=== PATIENT | male | born 1970 | race Caucasian/White ===

== ENCOUNTER 2018-07-22 11:30 | Inpatient (IN) | payer SELFPAY ==
[~2018-07-22] VITALS: Ht 182.9 cm; Wt 92.2 kg
--- NOTE | 2018-07-22 00:09 | NUR ---
pt c/o of itching and noted with hives to abdomen, paged Dr Patti Alcaraz and message left with answering service, IV abt stopped and tubing changed, resp even and unlabored, call light in reach
--- NOTE | 2018-07-22 00:40 | NUR ---
repaged Dr Patti Alcaraz and message left with answering service, pt states "itching is not that bad its still about the same", resp even and unlabored, still noted with hives to abdomen but no increase in number or size
[~2018-07-22 11:30] MED LIST: HYDROCHLOROTHIA25 MG PO; LOPID600 MG PO; PRAVACHOL20 MG PO; ZESTRIL2.5 MG PO; [UNRECOGNIZED DRUG - REMARK]
[2018-07-22] MEDS ORDERED: LORAZEPAM INJ 2 MG/ML VIAL IV ONE (12:00)
[2018-07-22] MEDS ORDERED: MULTIVITAMINS- 12 INJECTION 10 ML, FOLIC ACID MDV 5 MG, THIAMINE HCL INJ 100 MG in SODI... IV ONE (12:00)
[2018-07-22 13:27] LABS: BASOPHILS # (AUTO) 0.1 (0.0-0.1); BASOPHILS % 0.4 % (0.0-1.0); EOSINOPHILS # (AUTO) 0.1 (0.0-0.4); EOSINOPHILS % 0.3 % (0.0-6.0); HEMATOCRIT 43.4 % (38.2-49.6); HEMOGLOBIN 14.5 g/dL (14.0-18.0); LYMPHOCYTES # (AUTO) 1.4 (1.0-3.2); LYMPHOCYTES % 9.9 % (18.0-39.1); MEAN CORPUSCULAR HEMOGLOBIN 31.3 pg (28-32); MEAN CORPUSCULAR HGB CONC 33.4 g/dL (31-35); MEAN CORPUSCULAR VOLUME 93.7 fL (81-99); MONOCYTES # (AUTO) 1.2 (0.2-0.8); NEUTROPHILS # (AUTO) 11.6 (2.1-6.9); NEUTROPHILS % 80.9 % (38.7-80.0); PLATELET COUNT 223 x10e3/uL (140-360); RED BLOOD COUNT 4.63 x10e6/uL (4.3-5.7); RED CELL DISTRIBUTION WIDTH 13.7 % (11.7-14.4)
[2018-07-22 13:31] LABS: INR 0.94; PROTHROMBIN TIME 13.1 seconds (11.9-14.5)
[2018-07-22 13:32] LABS: PARTIAL THROMBOPLASTIN TIME 29.9 seconds (23.8-35.5)
[2018-07-22 13:36] LABS: CLARITY,URINE SL CLOUDY (CLEAR); COLOR,URINE YELLOW (YELLOW); KETONES,URINE NEGATIVE (NEGATIVE); LEUKOCYTE ESTERASE ,URINE NEGATIVE (NEGATIVE); NITRITE,URINE NEGATIVE (NEGATIVE); PROTEIN,URINE DIPSTICK 1+ (NEGATIVE); URINE UROBILINOGEN 1 mg/dL (0.2 - 1)
[2018-07-22 13:37] LABS: BILIRUBIN,URINE 1+ (NEGATIVE)
[2018-07-22 13:41] LABS: ALBUMIN 3.6 g/dL (3.5-5.0); ALBUMIN/GLOBULIN RATIO 0.8 (0.8-2.0); ANION GAP 15.9 mmol/L (8-16); CALCIUM 9.7 mg/dL (8.4-10.2); CREATININE, SERUM 1.44 mg/dL (0.72-1.25); MAGNESIUM 1.8 MG/DL (1.3-2.1); POTASSIUM 3.9 mmol/L (3.5-5.1)
[2018-07-22 13:45] LABS: BACTERIA,URINE MODERATE /HPF; EPITHELIAL CELLS,URINE FEW /LPF
[2018-07-22] MEDS ORDERED: ONDANSETRON HCL INJ 2MG/ML 2ML 2 MG/ML VIAL IV PRN (15:30)
[2018-07-22] MEDS ORDERED: PIPER-TAZ 3.375 GM 50 ML IV SCH (15:45)
[2018-07-22 16:43] VITALS: BP 149/83
[2018-07-22 17:00] VITALS: BP 149/83
[2018-07-22] MEDS ORDERED: CLINORIL PO (17:24)
[2018-07-22] MEDS ORDERED: COLCRYS0.6 MG PO (17:24)
--- NOTE | 2018-07-22 17:28 | NUR ---
Magalys Griffith at this time. Patient has fever of 100.3 with complaints of "excruciating" pain to feet. Awaiting return call.
[2018-07-22] MEDS ORDERED: HYDROMORPHONE 1MG/1ML INJ IV PRN (17:45)
[2018-07-22] MEDS: HYDROMORPHONE 2MG/ML 2 MG/ML ML IV PRN ×2 (18:18→21:20)
[2018-07-22] MEDS: LORAZEPAM 1 MG TAB PO SCH (18:18)
[2018-07-22 20:00] VITALS: BP 137/77
[2018-07-22] MEDS: ACETAMINOPHEN 325 MG TAB PO PRN (20:58)
[2018-07-22] MEDS: DEXTROSE 5%/0.9% SOD CHL 1,000 ML IV SCH (20:58)
[2018-07-22] MEDS: PIPER-TAZ 3.375 GM 50 ML IV SCH (20:59)
[2018-07-22] MEDS ORDERED: VANCOMYCIN 1GM/NS 250 ML 250 ML IV SCH (21:00)
[2018-07-23] VITALS (7 sets, daily range): BP systolic 93–135; BP diastolic 58–75
[2018-07-23] MEDS: LORAZEPAM 1 MG TAB PO SCH ×4 (00:04→17:17)
[2018-07-23] MEDS: HYDROMORPHONE 2MG/ML 2 MG/ML ML IV PRN ×3 (02:13→10:30)
[2018-07-23] MEDS: ACETAMINOPHEN 325 MG TAB PO PRN (03:00)
[2018-07-23] MEDS: PIPER-TAZ 3.375 GM 50 ML IV SCH ×4 (05:09→22:51)
[2018-07-23] MEDS: DEXTROSE 5%/0.9% SOD CHL 1,000 ML IV SCH ×2 (05:45→15:26)
[2018-07-23] MEDS ORDERED: DIPHENHYDRAMINE HCL 25 MG CAP PO PRN (06:00)
[2018-07-23 06:15] LABS: BASOPHILS % 0.3 % (0.0-1.0); EOSINOPHILS # (AUTO) 0.1 (0.0-0.4); EOSINOPHILS % 0.5 % (0.0-6.0); HEMATOCRIT 35.9 % (38.2-49.6); HEMOGLOBIN 12.1 g/dL (14.0-18.0); LYMPHOCYTES # (AUTO) 1.8 (1.0-3.2); LYMPHOCYTES % 15.4 % (18.0-39.1); MEAN CORPUSCULAR HEMOGLOBIN 31.3 pg (28-32); MEAN CORPUSCULAR HGB CONC 33.7 g/dL (31-35); MONOCYTES # (AUTO) 0.8 (0.2-0.8); NEUTROPHILS # (AUTO) 9.1 (2.1-6.9); NEUTROPHILS % 76.4 % (38.7-80.0); PLATELET COUNT 168 x10e3/uL (140-360); RED BLOOD COUNT 3.86 x10e6/uL (4.3-5.7); RED CELL DISTRIBUTION WIDTH 13.7 % (11.7-14.4)
[2018-07-23 06:42] LABS: ANION GAP 11.3 mmol/L (8-16); CALCIUM 8.9 mg/dL (8.4-10.2); CARBON DIOXIDE 27 mmol/L (22-29); CHLORIDE 96 mmol/L (98-107); CREATININE, SERUM 1.05 mg/dL (0.72-1.25); EST GLOMERULAR FILTRATION RATE > 60 ML/MIN (60-); GLUCOSE 111 mg/dL (74-118); POTASSIUM 3.3 mmol/L (3.5-5.1); SODIUM 131 mmol/L (136-145)
[2018-07-23 06:56] LABS: BLOOD UREA NITROGEN 8 mg/dL (7-26); BUN/CREATININE RATIO 7 (6-25)
[2018-07-23] MEDS ORDERED: THIAMINE HCL INJ 100 MG in SODIUM CHLORIDE 0.9% 50ML 50 ML IV SCH (09:00)
[2018-07-23] MEDS ORDERED: THIAMINE HCL INJ 100 MG/ML 2ML VIAL IV SCH (09:00)
[2018-07-23] MEDS: METOPROLOL TARTRATE 25 MG TAB PO SCH ×2 (09:59→17:00)
--- NOTE | 2018-07-23 10:30 | NUR ---
Patient medicated for pain to hands and feet per eMAR.
[2018-07-23] MEDS ORDERED: POTASSIUM CHLORIDE 10MEQ EA PO ONE (12:00)
[2018-07-23] MEDS: KETOROLAC TROMETHAMINE 30 MG/ML VIAL IV SCH ×2 (12:23→17:17)
[2018-07-23] MEDS: LINEZOLID 600 MG/D5W 300ML 300 ML IV SCH (12:24)
--- NOTE | 2018-07-23 14:57 | NUR ---
Nutrition Screen Note RD Recommendation for Physician: -Continue regular diet as ordered -Continue banana bag as medically appropriate Plan of Care: RD following, monitoring for tolerance and adequacy Nutrition reason for involvement: Nutrition Risk Trigger MST Primary Diagnose(s): alcohol withdrawal, cellulitis of both feet PMH: no H & P in chart, family reported gout Ht: 72in Wt: 198.02lb BMI: 26.9kg/m2 IBW: 178lb RD Assessment: (07/23) Chart reviewed. Labs and meds reviewed. 48yo M, who was admitted for alcohol withdrawal. Pt reported poor meal intake due to alcohol abuse [employer]. Unknown weight loss hx. Pt denied any nausea or vomiting. LBM 07/23. No chewing or swallowing issue. RD discussed menu options; family requested no acidic foods on meal trays (preferences entered on HT). Will continue to monitor and follow. Current Diet: regular diet Malnutrition Evaluation (07/23) The patient does not meet criteria for a specified degree of malnutrition at this time. Will re-evaluate at follow-up as appropriate. Energy intake: <50% of estimated energy requirements for >5 days Diet Education Needs Assessment: Diet education not indicated. Nutrition Care Level: low Signed: Rosalia Elder, MS, RD, LD
[2018-07-23] MEDS: MULTIVITAMINS- 12 INJECTION 10 ML, FOLIC ACID MDV 5 MG, THIAMINE HCL INJ 100 MG in SODI... IV SCH (15:00)
[2018-07-23] MEDS ORDERED: ONDANSETRON HCL 4 MG ORAL DISINTEGRATING TAB PO PRN (15:45)
--- NOTE | 2018-07-23 16:06 | NUR ---
GAVE PACKET OF INFORMATION WITH COMMUNITY [employer]OURCES FOR ASSISTANCE WITH LOW TO NO INCOME TO PATIENT. RESOURCES THAT PATIENT MAY BE ABLE TO FOLLOW UP UPON DISCHARGE. PT EDUCATED ON EACH RESOURCE AND UNDERSTANDING HOW TO FOLLOW UP TO SEE IF QUALIFIED FOR EACH RESOURCE.
--- NOTE | 2018-07-23 20:25 | NUR ---
RECEIVE DPT IN BED AOX3 DENIES PAIN .RESPIRATIONS ARE EVEN AND UN LABORED .CALL LIGHT WITH IN REACH .CONTINUE TO MONITOR
[2018-07-24] VITALS (8 sets, daily range): BP systolic 111–158; BP diastolic 69–91
[2018-07-24] MEDS: PIPER-TAZ 3.375 GM 50 ML IV SCH ×4 (04:00→22:13)
[2018-07-24] MEDS: DEXTROSE 5%/0.9% SOD CHL 1,000 ML IV SCH ×3 (05:07→21:45)
[2018-07-24 05:35] LABS: BASOPHILS % 0.4 % (0.0-1.0); EOSINOPHILS # (AUTO) 0.1 (0.0-0.4); EOSINOPHILS % 1.3 % (0.0-6.0); HEMATOCRIT 34.1 % (38.2-49.6); HEMOGLOBIN 11.5 g/dL (14.0-18.0); LYMPHOCYTES # (AUTO) 1.4 (1.0-3.2); LYMPHOCYTES % 14.7 % (18.0-39.1); MEAN CORPUSCULAR HEMOGLOBIN 31.9 pg (28-32); MEAN CORPUSCULAR HGB CONC 33.7 g/dL (31-35); MEAN CORPUSCULAR VOLUME 94.5 fL (81-99); MONOCYTES # (AUTO) 0.6 (0.2-0.8); MONOCYTES % 6.8 % (4.4-11.3); NEUTROPHILS # (AUTO) 7.2 (2.1-6.9); NEUTROPHILS % 76.3 % (38.7-80.0); PLATELET COUNT 142 x10e3/uL (140-360); RED BLOOD COUNT 3.61 x10e6/uL (4.3-5.7); RED CELL DISTRIBUTION WIDTH 13.2 % (11.7-14.4)
[2018-07-24] MEDS: KETOROLAC TROMETHAMINE 30 MG/ML VIAL IV SCH ×4 (05:35→17:47)
[2018-07-24] MEDS: LORAZEPAM 1 MG TAB PO SCH ×4 (05:35→17:47)
[2018-07-24 05:54] LABS: ANION GAP 12.7 mmol/L (8-16); BLOOD UREA NITROGEN 10 mg/dL (7-26); BUN/CREATININE RATIO 11 (6-25); CARBON DIOXIDE 24 mmol/L (22-29); CHLORIDE 103 mmol/L (98-107); CREATININE, SERUM 0.95 mg/dL (0.72-1.25); EST GLOMERULAR FILTRATION RATE > 60 ML/MIN (60-); GLUCOSE 105 mg/dL (74-118); POTASSIUM 3.7 mmol/L (3.5-5.1); SODIUM 136 mmol/L (136-145)
--- NOTE | 2018-07-24 06:28 | NUR ---
PT C/O PAIN OF BILATERAL LEGS .GIVEN ORDERED PAIN MEDICATION .FAMILY AT THE BEDSIDE
--- NOTE | 2018-07-24 07:34 | NUR ---
REPORT GIVEN TO ON COMING NURSE
[2018-07-24] MEDS: METOPROLOL TARTRATE 25 MG TAB PO SCH ×2 (09:51→17:47)
[2018-07-24] MEDS: MULTIVITAMINS- 12 INJECTION 10 ML, FOLIC ACID MDV 5 MG, THIAMINE HCL INJ 100 MG in SODI... IV SCH (11:47)
[2018-07-24] MEDS: LINEZOLID 600 MG/D5W 300ML 300 ML IV SCH ×2 (12:23)
[2018-07-24] MEDS: HYDROCODONE/APAP 7.5MG-325MG 1 EA TAB PO PRN (20:48)
[2018-07-25] VITALS (8 sets, daily range): BP systolic 120–165; BP diastolic 78–92
[2018-07-25] MEDS: LINEZOLID 600 MG/D5W 300ML 300 ML IV SCH ×2 (00:02→12:28)
[2018-07-25] MEDS: LORAZEPAM 1 MG TAB PO SCH ×4 (00:02→17:38)
[2018-07-25] MEDS: PIPER-TAZ 3.375 GM 50 ML IV SCH ×4 (04:38→21:37)
[2018-07-25] MEDS: MULTIVITAMINS- 12 INJECTION 10 ML, FOLIC ACID MDV 5 MG, THIAMINE HCL INJ 100 MG in SODI... IV SCH (09:00)
[2018-07-25] MEDS: METOPROLOL TARTRATE 25 MG TAB PO SCH ×2 (09:36→17:38)
[2018-07-25] MEDS: METHYLPREDNISOLONE SOD SUCC 40 MG/ML VIAL 1ML IV SCH ×2 (17:37→21:37)
[2018-07-26] VITALS: BP 165/98
[2018-07-26] MEDS: LORAZEPAM 1 MG TAB PO SCH ×3 (00:17→13:15)
[2018-07-26] MEDS: LINEZOLID 600 MG/D5W 300ML 300 ML IV SCH ×2 (00:17→11:05)
[2018-07-26] MEDS: HYDROCODONE/APAP 7.5MG-325MG 1 EA TAB PO PRN (00:17)
[2018-07-26] MEDS: PIPER-TAZ 3.375 GM 50 ML IV SCH ×2 (04:15→09:38)
[2018-07-26 05:10] LABS: BASOPHILS % 0.2 % (0.0-1.0); HEMATOCRIT 36.1 % (38.2-49.6); HEMOGLOBIN 12.2 g/dL (14.0-18.0); LYMPHOCYTES % 12.2 % (18.0-39.1); MEAN CORPUSCULAR HEMOGLOBIN 31.8 pg (28-32); MEAN CORPUSCULAR HGB CONC 33.8 g/dL (31-35); MONOCYTES # (AUTO) 0.3 (0.2-0.8); MONOCYTES % 3.7 % (4.4-11.3); NEUTROPHILS # (AUTO) 6.7 (2.1-6.9); NEUTROPHILS % 83.2 % (38.7-80.0); PLATELET COUNT 235 x10e3/uL (140-360); RED BLOOD COUNT 3.84 x10e6/uL (4.3-5.7)
[2018-07-26 05:39] VITALS: BP 134/81
[2018-07-26 05:57] LABS: ALANINE AMINOTRANSFERASE 65 IU/L (0-55); ALBUMIN/GLOBULIN RATIO 0.7 (0.8-2.0); ALKALINE PHOSPHATASE 111 IU/L (40-150); ANION GAP 14.1 mmol/L (8-16); BLOOD UREA NITROGEN 9 mg/dL (7-26); BUN/CREATININE RATIO 9 (6-25); CALCIUM 9.4 mg/dL (8.4-10.2); CARBON DIOXIDE 23 mmol/L (22-29); CHLORIDE 103 mmol/L (98-107); CREATININE, SERUM 1.02 mg/dL (0.72-1.25); EST GLOMERULAR FILTRATION RATE > 60 ML/MIN (60-); GLUCOSE 140 mg/dL (74-118); POTASSIUM 4.1 mmol/L (3.5-5.1); SODIUM 136 mmol/L (136-145)
[2018-07-26 08:30] VITALS: BP 130/76
[2018-07-26] MEDS: METHYLPREDNISOLONE SOD SUCC 40 MG/ML VIAL 1ML IV SCH (08:55)
[2018-07-26] MEDS: METOPROLOL TARTRATE 25 MG TAB PO SCH (08:55)
[2018-07-26 09:16] VITALS: BP 130/76
[2018-07-26 12:40] VITALS: BP 134/78
[2018-07-26] MEDS ORDERED: METOPROLOL TART25 MG PO (14:23)
[2018-07-26] MEDS ORDERED: KEFLEX500 MG PO (14:24)
[2018-07-26] MEDS ORDERED: THIAMINE H100 MG/1 M PO (14:25)
[2018-07-26] MEDS ORDERED: FOLIC ACID1 MG PO (14:25)
[2018-07-26] MEDS ORDERED: PREDNISONE20 MG PO (14:26)
--- NOTE | 2018-07-26 14:55 | Discharge Summary ---
ADMITTING DIAGNOSES: 1. Left foot cellulitis. 2. Acute gouty attack (left podagra). 3. Acute renal failure. 4. Alcoholic hepatitis. 5. Hypertensive heart disease. 6. Chronic alcoholism. DISCHARGE DIAGNOSES: 1. Left foot cellulitis, resolving. 2. Acute alcohol withdrawal, resolved. 3. Chronic alcoholism. 4. Acute gouty attack, resolving (left podagra). 5. Acute renal failure, resolved. HOSPITAL COURSE: This is a 48-year-old white man, who was initially admitted to [facility] Emergency room with diagnosis of left foot cellulitis and left podagra (acute gout attack). The patient has a history of chronic alcoholism as well as a history of recurrent bouts of gout. The patient was also diagnosed with acute alcoholic hepatitis as well as acute renal failure on admission. On admission, the patient's BUN and creatinine was 9 and 1.44 respectively. On the day of discharge, the patient's BUN and creatinine 9 and 1.02 respectively. The patient received intravenous multivitamin, folic acid, and thiamine during this hospitalization. He also received intravenous linezolid and piperacillin-tazobactam for his cellulitis and urinary tract infection respectively. Urine culture during this hospitalization, however, did not reveal any bacterial species in his urine. The patient was found to have an elevated uric acid level of 7.3 during this hospitalization. The patient improved clinically in regard to his gout with intravenous methylprednisolone. The patient's hospitalization was unremarkable. His condition on discharge was stable. DISCHARGE MEDICATIONS: 1. Prednisone 40 mg daily for five days. 2. Thiamine 100 mg b.i.d. for 30 days. 3. Folic acid 1 mg b.i.d. for 30 days. 4. Keflex 500 mg b.i.d. for 5 days. 5. Metoprolol tartrate 25 mg b.i.d. The patient was told not to restart gemfibrozil, pravastatin, colchicine, hydrochlorothiazide, and lisinopril until further notice. FOLLOWUP: The patient was instructed to follow up with his primary care physician or with Dr. Kareem Alcaraz within 2 weeks. Absolute alcohol abstinence was recommended to the patient. MD RADHA Sun/[place] /[id number] cc: Kareem Alcaraz MD MTDD
--- NOTE | 2018-07-26 14:55 | NUR ---
PIV removed with tip intact. pt refused assistance and walked to front lobby entrance where awaited in private auto. all personal belongings, RX and d/c instructions with patient at time of d/c.
== END 2018-07-26 14:55 | disposition home or self-care (01) | DRG 603 ==
LOC: ER 11:30 → ERHOLD 15:30 → MED/SURG2 16:37
DX: L03.116 Cellulitis of left lower limb (principal); N17.9 Acute kidney failure, unspecified; F10.239 Alcohol dependence with withdrawal, unspecified; M10.9 Gout, unspecified; K70.10 Alcoholic hepatitis without ascites; I11.9 Hypertensive heart disease without heart failure; E78.5 Hyperlipidemia, unspecified
CPT/HCPCS: 36415; 80048; 80053; 80202; 80320; 81001; 82150; 83690; 83735; 84550; 85025; 85610; 85651; 85730; 87086; 93005; 96374; 99284; J1885; J2020; J2060; J2543; J2920; J3370; J3411; J7030; J7042

== ENCOUNTER 2019-10-22 21:03 | Emergency (ER) | payer SELFPAY ==
[~2019-10-22] VITALS: Ht 182.9 cm; Wt 92.1 kg
[~2019-10-22 21:03] MED LIST changes: +CLINORIL PO; +COLCRYS0.6 MG PO; +FOLIC ACID1 MG PO; +KEFLEX500 MG PO; +METOPROLOL TART25 MG PO; +PREDNISONE20 MG PO; +THIAMINE H100 MG/1 M PO
[2019-10-22 22:52] LABS: BASOPHILS # (AUTO) 0.1 (0.0-0.1); BASOPHILS % 0.6 % (0.0-1.0); EOSINOPHILS # (AUTO) 0.2 (0.0-0.4); EOSINOPHILS % 1.2 % (0.0-6.0); HEMOGLOBIN 14.4 g/dL (14.0-18.0); LYMPHOCYTES # (AUTO) 1.4 (1.0-3.2); LYMPHOCYTES % 10.9 % (18.0-39.1); MEAN CORPUSCULAR HEMOGLOBIN 30.6 pg (28-32); MEAN CORPUSCULAR VOLUME 95.5 fL (81-99); MONOCYTES # (AUTO) 1.5 (0.2-0.8); MONOCYTES % 11.9 % (4.4-11.3); NEUTROPHILS # (AUTO) 9.4 (2.1-6.9); NEUTROPHILS % 74.8 % (38.7-80.0); PLATELET COUNT 230 x10e3/uL (140-360); RED BLOOD COUNT 4.71 x10e6/uL (4.3-5.7); RED CELL DISTRIBUTION WIDTH 13.7 % (11.7-14.4)
[2019-10-22 23:08] LABS: ALANINE AMINOTRANSFERASE 55 IU/L (0-55); ALBUMIN 3.8 g/dL (3.5-5.0); ALBUMIN/GLOBULIN RATIO 0.9 (0.8-2.0); ALKALINE PHOSPHATASE 83 IU/L (40-150); ANION GAP 16.2 mmol/L (8-16); BLOOD UREA NITROGEN 13 mg/dL (7-26); BUN/CREATININE RATIO 11 (6-25); CALCIUM 9.6 mg/dL (8.4-10.2); CARBON DIOXIDE 26 mmol/L (22-29); CHLORIDE 99 mmol/L (98-107); CREATINE KINASE 46 IU/L (30-200); CREATININE, SERUM 1.19 mg/dL (0.72-1.25); EST GLOMERULAR FILTRATION RATE > 60 ML/MIN (60-); GLUCOSE 137 mg/dL (74-118); POTASSIUM 4.2 mmol/L (3.5-5.1); SODIUM 137 mmol/L (136-145)
--- NOTE | 2019-10-23 00:04 | Emergency Department Note ---
History of Present Illnes History of Present Illness Chief Complaint: General Medicine Complaints History of Present Illness This is a 49 year old male arrives to the ED via bilateral knee and feet pain, patient states his gout is acting up and he feels like he has an infection. Chief Complaint Comment c/o gout to bilateral knees, bilateral feet, bilateral elbow and back pain progressively getting worse over a month to the point he cannot walk or get out of bed states he was dx with cellulitis and gout the last time he was here seen by dr juarez Historian: Patient Arrival Mode: Car Onset (how long ago): day(s) Severity: mild Onset quality: gradual Duration (how long): day(s) Timing of current episode: intermittent Chronicity: recurrent Past Medical/Family History Physician Review I have reviewed the patient's past medical and family history. Any updates have been documented here. Past Medical History Recent Fever: Yes Clinical Suspicion of Infectio: No New/Unexplained Change in Ment: No Past Medical History: Hypertension Other Medical History: Gout Past Surgical History: Appendectomy, Knee Replacement Other Surgery: LEFT NEPHRECTOMY LEFT KNEE SURGER Other Last Tetanus: UNK Review of Systems Review of Systems Constitutional: Reports no symptoms EENTM: Reports no symptoms Cardiovascular: Reports no symptoms Respiratory: Reports no symptoms Gastrointestinal: Reports no symptoms Genitourinary: Reports no symptoms Musculoskeletal: Reports gout, Reports joint pain, Reports joint swelling Integumentary: Reports no symptoms Neurological: Reports no symptoms Psychological: Reports no symptoms Endocrine: Reports no symptoms Hematological/Lymphatic: Reports no symptoms Physical Exam Related Data Allergies: Coded Allergies: vancomycin (Verified Allergy, Intermediate, hives, itching, 07/23/18) Triage Vital Signs Vital Signs Date Time Temp Pulse Resp B/P (MAP) Pulse Ox O2 Delivery O2 Flow Rate FiO2 10/22/19 21:44 101.4 90 18 161/90 100 Room Air Physical Exam CONSTITUTIONAL Constitutional: Present well-developed, Present well-nourished HENT HENT: Present normocephalic, Present atraumatic, Present oropharynx clear/moist, Present nose normal HENT L/R: Present left ext ear normal, Present right ext ear normal EYES Eyes: Reports PERRL, Reports conjunctivae normal NECK Neck: Present ROM normal PULMONARY Pulmonary: Present effort normal, Present breath sounds normal CARDIOVASCULAR Cardiovascular: Present regular rhythm, Present heart sounds normal, Present capillary refill normal, Present normal rate GASTROINTESTINAL Abdominal: Present soft, Present nontender, Present bowel sounds normal GENITOURINARY Genitourinary: Present exam deferred SKIN Skin: Present warm, Present dry; Absent erythema MUSCULOSKELETAL Musculoskeletal: Present ROM normal NEUROLOGICAL Neurological: Present alert, Present oriented x 3, Present no gross motor or sensory deficits PSYCHOLOGICAL Psychological: Present mood/affect normal, Present judgement normal Results Laboratory Result Diagram: 10/22/19215310/22/192153 Laboratory Laboratory Tests Test 10/22/19 21:54 White Blood Count 12.61 x10e3/uL (4.8-10.8) Red Blood Count 4.71 x10e6/uL (4.3-5.7) Hemoglobin 14.4 g/dL (14.0-18.0) Hematocrit 45.0 % (38.2-49.6) Mean Corpuscular Volume 95.5 fL (81-99) Mean Corpuscular Hemoglobin 30.6 pg (28-32) Mean Corpuscular Hemoglobin Concent 32.0 g/dL (31-35) Red Cell Distribution Width 13.7 % (11.7-14.4) Platelet Count 230 x10e3/uL (140-360) Neutrophils (%) (Auto) 74.8 % (38.7-80.0) Lymphocytes (%) (Auto) 10.9 % (18.0-39.1) Monocytes (%) (Auto) 11.9 % (4.4-11.3) Eosinophils (%) (Auto) 1.2 % (0.0-6.0) Basophils (%) (Auto) 0.6 % (0.0-1.0) Neutrophils # (Auto) 9.4 (2.1-6.9) Lymphocytes # (Auto) 1.4 (1.0-3.2) Monocytes # (Auto) 1.5 (0.2-0.8) Eosinophils # (Auto) 0.2 (0.0-0.4) Basophils # (Auto) 0.1 (0.0-0.1) Absolute Immature Granulocyte (auto 0.07 x10e3/uL (0-0.1) Sodium Level 137 mmol/L (136-145) Potassium Level 4.2 mmol/L (3.5-5.1) Chloride Level 99 mmol/L (98-107) Carbon Dioxide Level 26 mmol/L (22-29) Anion Gap 16.2 mmol/L (8-16) Blood Urea Nitrogen 13 mg/dL (7-26) Creatinine 1.19 mg/dL (0.72-1.25) Estimat Glomerular Filtration Rate > 60 ML/MIN (60-) BUN/Creatinine Ratio 11 (6-25) Glucose Level 137 mg/dL (74-118) Calcium Level 9.6 mg/dL (8.4-10.2) Total Bilirubin 1.1 mg/dL (0.2-1.2) Aspartate Amino Transf (AST/SGOT) 31 IU/L (5-34) Alanine Aminotransferase (ALT/SGPT) 55 IU/L (0-55) Alkaline Phosphatase 83 IU/L (40-150) Creatine Kinase 46 IU/L (30-200) Creatine Kinase MB 0.70 ng/mL (0-5.0) Troponin I < 0.001 ng/mL (0-0.300) Total Protein 8.0 g/dL (6.5-8.1) Albumin 3.8 g/dL (3.5-5.0) Globulin 4.2 g/dL (2.3-3.5) Albumin/Globulin Ratio 0.9 (0.8-2.0) Lab results reviewed: Yes Imaging Imaging results reviewed: Yes Impressions IMPRESSION: No acute thoracic radiographic abnormality. Assessment & Plan Medical Decision Making MDM 40 myomectomy arrived to the ED of bilateral joint pain and swelling, no deformity febrile in the ED. Joints do not look cellulitic or infected at this time. Patient's labwork unremarkable. No indication for hospital admission at this time. Assessment & Plan Final Impression: (1) Cellulitis of both feet (2) Alcohol withdrawal Depart Disposition: HOME, SELF-CARE Last Vital Signs Date Time Temp Pulse Resp B/P (MAP) Pulse Ox O2 Delivery O2 Flow Rate FiO2 10/22/19 21:44 101.4 90 18 161/90 100 Room Air Home Meds Reported Medications Prednisone (PREDNISONE) 20 Mg Tab, 40 MG PO DAILY for 5 Days, #5 TAB 07/26/18 Thiamine Hcl (THIAMINE HCL) 100 Mg/1 Ml Vial, 100 MG PO DAILY, #30 VIAL 07/26/18 Folic Acid (FOLIC ACID) 1 Mg Tablet, 1 MG PO BID, #60 TAB 07/26/18 Cephalexin Monohydrate (KEFLEX) 500 Mg Capsule, 1 CAP PO BID for 5 Days, #10 07/26/18 Metoprolol Tartrate (METOPROLOL TARTRATE) 25 Mg Tablet, 25 MG PO BID, #60 TAB 07/26/18 TIBURCIO JUAREZ, Oct 23, 2019 00:03
--- NOTE | 2019-10-23 01:07 | Diagnostic Imaging Report ---
EXAMINATION: CHEST SINGLE (PORTABLE) INDICATION: ^Y ^fever ^[id number] ^[id number] COMPARISON: None FINDINGS: AP view TUBES and LINES: None. LUNGS: Lungs are well inflated. Lungs are clear. There is no evidence of pneumonia or pulmonary edema. PLEURA: No pleural effusion or pneumothorax. HEART AND MEDIASTINUM: The cardiomediastinal silhouette is unremarkable. BONES AND SOFT TISSUES: No acute osseous lesion. Soft tissues are unremarkable. UPPER ABDOMEN: No free air under the diaphragm. IMPRESSION: No acute thoracic radiographic abnormality. Signed by: Laurent Ruvalcaba MD on 10/23/2019 1:03 AM
[2019-10-23 04:00] LABS: AMPHETAMINES SCREEN,URINE NEGATIVE (NEGATIVE); BENZODIAZEPINES SCREEN,URINE NEGATIVE (NEGATIVE); PHENCYCLIDINE SCREEN,URINE NEGATIVE (NEGATIVE)
[2019-10-23 04:01] LABS: CLARITY,URINE CLEAR (CLEAR); COLOR,URINE ORANGE (YELLOW); LEUKOCYTE ESTERASE ,URINE NEGATIVE (NEGATIVE); NITRITE,URINE NEGATIVE (NEGATIVE)
[2019-10-23 04:02] LABS: BILIRUBIN,URINE SMALL (NEGATIVE); KETONES,URINE NEGATIVE (NEGATIVE); PROTEIN,URINE DIPSTICK NEGATIVE (NEGATIVE); URINE UROBILINOGEN 2 mg/dL (0.2 - 1)
[2019-10-23 04:15] LABS: EPITHELIAL CELLS,URINE FEW /LPF; MUCUS,URINE MANY (RARE); RBC,URINE 0-5 /HPF (0-5); WBC,URINE (MAN) 0-5 /HPF (0-5)
== END 2019-10-23 04:31 | disposition home or self-care (01) ==
LOC: ER 22:10
DX: L03.116 Cellulitis of left lower limb (principal); L03.115 Cellulitis of right lower limb; F10.239 Alcohol dependence with withdrawal, unspecified
CPT/HCPCS: 36415; 71045; 80053; 80307; 81001; 82550; 82553; 83605; 84484; 85025; 87040; 99284

== ENCOUNTER 2020-05-20 21:35 | Emergency (ER) | payer BC ==
[~2020-05-20] VITALS: Ht 182.9 cm; Wt 92.1 kg
[2020-05-20] MEDS ORDERED: ASPIRIN 81 MG CHEW TAB PO ONE (21:45)
[2020-05-20] MEDS ORDERED: KETOROLAC TROMETHAMINE 30 MG/ML VIAL IV STA (21:50)
[2020-05-20] MEDS ORDERED: METHYLPREDNISOLONE SOD SUCC 125 MG/2ML VIAL IV ONE (22:00)
[2020-05-20 22:42] LABS: BASOPHILS # (AUTO) 0.1 (0.0-0.1); BASOPHILS % 0.7 % (0.0-1.0); EOSINOPHILS # (AUTO) 0.3 (0.0-0.4); EOSINOPHILS % 2.2 % (0.0-6.0); HEMATOCRIT 42.3 % (38.2-49.6); HEMOGLOBIN 14.2 g/dL (14.0-18.0); LYMPHOCYTES # (AUTO) 2.8 (1.0-3.2); LYMPHOCYTES % 23.3 % (18.0-39.1); MEAN CORPUSCULAR HEMOGLOBIN 32.2 pg (28-32); MEAN CORPUSCULAR HGB CONC 33.6 g/dL (31-35); MEAN CORPUSCULAR VOLUME 95.9 fL (81-99); MONOCYTES # (AUTO) 1.1 (0.2-0.8); MONOCYTES % 8.6 % (4.4-11.3); NEUTROPHILS # (AUTO) 7.8 (2.1-6.9); NEUTROPHILS % 64.2 % (38.7-80.0); PLATELET COUNT 357 x10e3/uL (140-360); RED BLOOD COUNT 4.41 x10e6/uL (4.3-5.7); RED CELL DISTRIBUTION WIDTH 13.5 % (11.7-14.4)
[2020-05-20 22:46] LABS: PROTHROMBIN TIME 13.8 seconds (11.9-14.5)
[2020-05-20 22:47] LABS: PARTIAL THROMBOPLASTIN TIME 29.7 seconds (23.8-35.5)
[2020-05-20 22:57] LABS: ALANINE AMINOTRANSFERASE 42 IU/L (0-55); ALBUMIN 3.2 g/dL (3.5-5.0); ALBUMIN/GLOBULIN RATIO 0.7 (0.8-2.0); ALKALINE PHOSPHATASE 108 IU/L (40-150); ANION GAP 20.2 mmol/L (8-16); BLOOD UREA NITROGEN < 5 mg/dL (7-26); CALCIUM 8.5 mg/dL (8.4-10.2); CARBON DIOXIDE 20 mmol/L (22-29); CHLORIDE 93 mmol/L (98-107); CREATINE KINASE 106 IU/L (30-200); CREATININE, SERUM 0.83 mg/dL (0.72-1.25); EST GLOMERULAR FILTRATION RATE > 60 ML/MIN (60-); GLUCOSE 144 mg/dL (74-118); POTASSIUM 3.2 mmol/L (3.5-5.1); SODIUM 130 mmol/L (136-145)
[2020-05-20 22:58] LABS: BUN/CREATININE RATIO 6 (6-25)
[2020-05-20] MEDS ORDERED: IOPAMIDOL 370 MG/ML 200 ML INFUS..BTL INJ ONE (23:26)
[2020-05-21 00:40] VITALS: BP 131/85
== END 2020-05-21 00:49 | disposition home or self-care (01) ==
LOC: ER 21:40
DX: M94.0 Chondrocostal junction syndrome [Tietze] (principal); R21 Rash and other nonspecific skin eruption; Z88.1 Allergy status to other antibiotic agents; Z90.5 Acquired absence of kidney
CPT/HCPCS: 36415; 71045; 71260; 80053; 82550; 82553; 83880; 84484; 85025; 85379; 85610; 85730; 93005; 99284; J1885; J2930; Q9967

== ENCOUNTER 2022-02-15 13:52 | Emergency (ER) | payer SELFPAY ==
[~2022-02-15] VITALS: Ht 365.8 cm; Wt 93.4 kg
[~2022-02-15 13:52] MED LIST changes: +AUGMENTIN 500-1 EACH PO; +FUROSEMIDE40 MG PO; +INDERAL10 MG PO
== END 2022-02-15 14:20 | disposition home or self-care (01) ==
LOC: ER 13:58
DX: K70.31 Alcoholic cirrhosis of liver with ascites (principal); I10 Essential (primary) hypertension; M10.9 Gout, unspecified; F10.10 Alcohol abuse, uncomplicated
CPT/HCPCS: 99282

== ENCOUNTER 2024-07-28 14:10 | Inpatient (IN) | payer MEDICAID, MEDICARE ==
[~2024-07-28] VITALS: Ht 365.8 cm; Wt 90.7 kg
[2024-07-28 14:34] VITALS: TEMP 97.8
[2024-07-28 14:53] LABS: BASOPHILS # (AUTO) 0.1 (0.0-0.1); BASOPHILS % 0.9 % (0.0-1.0); EOSINOPHILS # (AUTO) 0.4 (0.0-0.4); EOSINOPHILS % 5.4 % (0.0-6.0); HEMATOCRIT 34.9 % (38.2-49.6); HEMOGLOBIN 12.3 g/dL (14.0-18.0); LYMPHOCYTES % 15.5 % (18.0-39.1); MEAN CORPUSCULAR HEMOGLOBIN 32.3 pg (28-32); MEAN CORPUSCULAR HGB CONC 35.2 g/dL (31-35); MEAN CORPUSCULAR VOLUME 91.6 fL (81-99); MONOCYTES # (AUTO) 0.4 (0.2-0.8); MONOCYTES % 6.2 % (4.4-11.3); NEUTROPHILS # (AUTO) 4.6 (2.1-6.9); NEUTROPHILS % 71.5 % (38.7-80.0); PLATELET COUNT 139 x10e3/uL (140-360); RED BLOOD COUNT 3.81 x10e6/uL (4.3-5.7); RED CELL DISTRIBUTION WIDTH 14.2 % (11.7-14.4); WHITE BLOOD COUNT 6.45 x10e3/uL (4.8-10.8)
[2024-07-28 15:16] LABS: ALBUMIN/GLOBULIN RATIO 1.4 (0.8-2.0); BILIRUBIN,TOTAL 0.7 mg/dL (0.2-1.2); CALCIUM 8.8 mg/dL (8.4-10.2); CREATININE, SERUM 1.96 mg/dL (0.72-1.25); TOTAL PROTEIN 6.8 g/dL (6.5-8.1)
[2024-07-28] MEDS: SODIUM CHLORIDE 0.9% 1000ML 1,000 ML IV STA ×2 (15:42→16:39)
[2024-07-28] MEDS: INSULIN REGULAR, HUMAN 100 UNIT/1 ML IV ONE (15:43)
[2024-07-28 15:44] LABS: BILIRUBIN,URINE NEGATIVE (NEGATIVE); CLARITY,URINE CLEAR (CLEAR); COLOR,URINE YELLOW (YELLOW); GLUCOSE, URINE 500 (NEGATIVE); KETONES,URINE NEGATIVE (NEGATIVE); LEUKOCYTE ESTERASE ,URINE NEGATIVE (NEGATIVE); NITRITE,URINE NEGATIVE (NEGATIVE); PH,URINE 6.5 (5 - 7); PROTEIN,URINE DIPSTICK NEGATIVE (NEGATIVE); URINE UROBILINOGEN 0.2 mg/dL (0.2 - 1)
[2024-07-28 15:45] LABS: ANION GAP 13.5 mmol/L (8-16); INR 0.94; PARTIAL THROMBOPLASTIN TIME 31.1 seconds (23.8-35.5); POTASSIUM 5.5 mmol/L (3.5-5.1); PROTHROMBIN TIME 13.1 seconds (11.9-14.5)
[2024-07-28 15:48] LABS: BACTERIA,URINE FEW /HPF; EPITHELIAL CELLS,URINE FEW /LPF; RBC,URINE 0-5 /HPF (0-5); WBC,URINE (MAN) 0-5 /HPF (0-5)
[2024-07-28] MEDS: Morphine 4mg INJECTION 4 MG/ML INJ IV STA (16:39)
[2024-07-28] MEDS: ONDANSETRON HCL INJ 2MG/ML 2ML 2 MG/ML VIAL IV STA (16:39)
[2024-07-28 16:52] LABS: ABG PCO2 44 mmHg (35-45); ABG PH 7.34 (7.35-7.45); ABG PO2 87 mmHg (80-105)
[2024-07-28 16:53] LABS: ABG HCO3 24 mmol/L (22-26); ABG TCO2 25
[2024-07-28] MEDS ORDERED: DEXTROSE 50% SYRINGE 50 ML IV PRN (18:00)
[2024-07-28] MEDS ORDERED: ONDANSETRON HCL INJ 2MG/ML 2ML 2 MG/ML VIAL IV PRN (18:00)
[2024-07-28 18:30] VITALS: RESP 18
[2024-07-28] MEDS: SODIUM CHLORIDE 0.9% 1000ML 1,000 ML IV SCH (18:32)
[2024-07-28 19:15] VITALS: PULSE 70
[2024-07-28 20:20] VITALS: BP 124/86; PULSE 66; RESP 18; TEMP 98.4; O2SAT 99
[2024-07-28 21:00] VITALS: BP 124/86; PULSE 66; RESP 18; TEMP 98.4; O2SAT 99
[2024-07-28] MEDS: INSULIN LISPRO 100 UNIT/1 ML 3ML VIAL SQ SCH (21:30)
[2024-07-28 23:28] VITALS: BP 123/74; PULSE 80; RESP 18; TEMP 98.1; O2SAT 98
[2024-07-29] VITALS (9 sets, daily range): BP systolic 113–138; BP diastolic 66–96; PULSE 63–80; RESP 16–18; TEMP 98.1–98.8; O2SAT 96–100
[2024-07-29 00:56] LABS: TROPONIN I 0.012 ng/mL (0-0.300)
[2024-07-29] MEDS ORDERED: TACROLIMUS1 MG PO (02:04)
[2024-07-29] MEDS ORDERED: MAG-OXIDE400 MG PO (02:04)
[2024-07-29] MEDS ORDERED: MYCOPHENOLATE500 MG PO (02:04)
[2024-07-29] MEDS ORDERED: FLUDROCORTISON0.1 MG PO (02:04)
[2024-07-29] MEDS ORDERED: ASPIRIN325 MG PO (02:04)
[2024-07-29 05:37] LABS: BASOPHILS # (AUTO) 0.1 (0.0-0.1); BASOPHILS % 0.7 % (0.0-1.0); EOSINOPHILS # (AUTO) 0.3 (0.0-0.4); EOSINOPHILS % 4.8 % (0.0-6.0); HEMATOCRIT 34.4 % (38.2-49.6); HEMOGLOBIN 12.3 g/dL (14.0-18.0); LYMPHOCYTES # (AUTO) 1.5 (1.0-3.2); LYMPHOCYTES % 21.1 % (18.0-39.1); MEAN CORPUSCULAR HEMOGLOBIN 32.3 pg (28-32); MEAN CORPUSCULAR HGB CONC 35.8 g/dL (31-35); MEAN CORPUSCULAR VOLUME 90.3 fL (81-99); MONOCYTES # (AUTO) 0.4 (0.2-0.8); MONOCYTES % 6.2 % (4.4-11.3); NEUTROPHILS # (AUTO) 4.6 (2.1-6.9); NEUTROPHILS % 66.3 % (38.7-80.0); PLATELET COUNT 144 x10e3/uL (140-360); RED BLOOD COUNT 3.81 x10e6/uL (4.3-5.7); RED CELL DISTRIBUTION WIDTH 13.5 % (11.7-14.4); WHITE BLOOD COUNT 6.92 x10e3/uL (4.8-10.8)
[2024-07-29 06:06] LABS: ALBUMIN 3.8 g/dL (3.5-5.0); ALBUMIN/GLOBULIN RATIO 1.5 (0.8-2.0); ANION GAP 13.6 mmol/L (8-16); BILIRUBIN,TOTAL 0.7 mg/dL (0.2-1.2); CALCIUM 8.7 mg/dL (8.4-10.2); CREATININE, SERUM 1.36 mg/dL (0.72-1.25); POTASSIUM 4.6 mmol/L (3.5-5.1); TOTAL PROTEIN 6.3 g/dL (6.5-8.1)
[2024-07-29 06:37] LABS: TROPONIN I 0.013 ng/mL (0-0.300)
[2024-07-29] MEDS ORDERED: METOPROLOL TARTRATE INJ 1 MG/ML VIAL IV PRN (08:00)
[2024-07-29] MEDS ORDERED: ALBUTEROL/IPRATROPIUM 3 ML NEB NEB PRN (08:00)
[2024-07-29] MEDS ORDERED: ACETAMINOPHEN 325 MG TAB PO PRN (08:00)
[2024-07-29] MEDS ORDERED: MELATONIN 3 MG TAB PO PRN (08:00)
[2024-07-29] MEDS ORDERED: DOCUSATE SODIUM 100 MG CAP PO PRN (08:00)
[2024-07-29] MEDS: INSULIN GLARGINE 100 UNITS/ML VIAL SQ SCH (08:45)
[2024-07-29] MEDS: TACROLIMUS 1 MG CAP PO SCH (08:48)
[2024-07-29] MEDS: FLUDROCORTISONE ACETATE 0.1 MG TAB PO SCH (08:49)
[2024-07-29] MEDS: MYCOPHENOLATE MOFETIL 250 MG CAP PO SCH (08:49)
[2024-07-29 09:06] LABS: CHOL/HDL RATIO 5.3 (3.9-4.7)
[2024-07-29] MEDS: ENOXAPARIN SOD INJ 40 MG/0.4 ML SYR SC SCH (16:51)
[2024-07-29] MEDS: INSULIN GLARGINE 100 UNITS/ML VIAL SQ ONE (22:00)
[2024-07-30] VITALS (9 sets, daily range): BP systolic 119–154; BP diastolic 66–92; PULSE 58–72; RESP 16–20; TEMP 98–98.6; O2SAT 95–99
[2024-07-30 05:19] LABS: BASOPHILS # (AUTO) 0.1 (0.0-0.1); BASOPHILS % 0.9 % (0.0-1.0); EOSINOPHILS # (AUTO) 0.3 (0.0-0.4); HEMATOCRIT 32.9 % (38.2-49.6); HEMOGLOBIN 11.7 g/dL (14.0-18.0); LYMPHOCYTES # (AUTO) 1.6 (1.0-3.2); LYMPHOCYTES % 26.7 % (18.0-39.1); MEAN CORPUSCULAR HEMOGLOBIN 32.3 pg (28-32); MEAN CORPUSCULAR HGB CONC 35.6 g/dL (31-35); MEAN CORPUSCULAR VOLUME 90.9 fL (81-99); MONOCYTES # (AUTO) 0.4 (0.2-0.8); MONOCYTES % 6.7 % (4.4-11.3); NEUTROPHILS # (AUTO) 3.5 (2.1-6.9); NEUTROPHILS % 59.8 % (38.7-80.0); PLATELET COUNT 122 x10e3/uL (140-360); RED BLOOD COUNT 3.62 x10e6/uL (4.3-5.7); RED CELL DISTRIBUTION WIDTH 13.2 % (11.7-14.4); WHITE BLOOD COUNT 5.85 x10e3/uL (4.8-10.8)
[2024-07-30 05:42] LABS: ANION GAP 13.1 mmol/L (8-16); CALCIUM 8.5 mg/dL (8.4-10.2); CREATININE, SERUM 1.17 mg/dL (0.72-1.25); POTASSIUM 4.1 mmol/L (3.5-5.1)
[2024-07-30] MEDS ORDERED: INSULIN LISPRO 100 UNIT/1 ML 3ML VIAL SQ SCH (07:30)
[2024-07-30] MEDS ORDERED: INSULIN GLARGINE 100 UNITS/ML VIAL SQ SCH (08:00)
[2024-07-30] MEDS: FENOFIBRATE 145 MG TAB PO SCH (09:02)
[2024-07-30] MEDS: INSULIN LISPRO 100 UNIT/1 ML 3ML VIAL SQ SCH (09:08)
[2024-07-30] MEDS: INSULIN GLARGINE 100 UNITS/ML VIAL SQ SCH (09:09)
[2024-07-30] MEDS: ACETAMIN/BUTALBITAL/CAFFEINE TAB PO PRN (12:38)
[2024-07-31] VITALS (7 sets, daily range): BP systolic 137–152; BP diastolic 80–96; PULSE 62–76; RESP 16–19; TEMP 97.9–98; O2SAT 97–100
[2024-07-31 06:16] LABS: BASOPHILS % 0.7 % (0.0-1.0); EOSINOPHILS # (AUTO) 0.2 (0.0-0.4); EOSINOPHILS % 4.3 % (0.0-6.0); HEMATOCRIT 32.4 % (38.2-49.6); HEMOGLOBIN 11.5 g/dL (14.0-18.0); LYMPHOCYTES # (AUTO) 1.4 (1.0-3.2); LYMPHOCYTES % 26.2 % (18.0-39.1); MEAN CORPUSCULAR HEMOGLOBIN 32.2 pg (28-32); MEAN CORPUSCULAR HGB CONC 35.5 g/dL (31-35); MEAN CORPUSCULAR VOLUME 90.8 fL (81-99); MONOCYTES # (AUTO) 0.3 (0.2-0.8); MONOCYTES % 5.6 % (4.4-11.3); NEUTROPHILS # (AUTO) 3.3 (2.1-6.9); NEUTROPHILS % 62.3 % (38.7-80.0); PLATELET COUNT 119 x10e3/uL (140-360); RED BLOOD COUNT 3.57 x10e6/uL (4.3-5.7); RED CELL DISTRIBUTION WIDTH 13.2 % (11.7-14.4); WHITE BLOOD COUNT 5.35 x10e3/uL (4.8-10.8)
[2024-07-31 06:42] LABS: ANION GAP 13.2 mmol/L (8-16); CALCIUM 8.7 mg/dL (8.4-10.2); CREATININE, SERUM 1.17 mg/dL (0.72-1.25); POTASSIUM 4.2 mmol/L (3.5-5.1)
[2024-07-31] MEDS ORDERED: INSULIN GLARGINE 100 UNITS/ML VIAL SQ STA (12:23)
[2024-07-31] MEDS ORDERED: Insulin Lispro SQ (12:26)
[2024-07-31] MEDS ORDERED: Insulin Glargine SQ (12:26)
[2024-07-31] MEDS ORDERED: INSULIN LISPRO 100 UNIT/1 ML 3ML VIAL SQ SCH (16:30)
[2024-08-01] MEDS ORDERED: INSULIN GLARGINE 100 UNITS/ML VIAL SQ SCH (09:00)
[2024-08-02 06:42] LABS: ABG HCO3 24 mmol/L (22-26); ABG PCO2 44 mmHg (35-45); ABG PH 7.34 (7.35-7.45); ABG PO2 87 mmHg (80-105); ABG TCO2 25
== END 2024-07-31 14:10 | disposition home or self-care (01) | DRG 638 ==
LOC: ER 15:01 → ERHOLD 17:50 → MED/SURG2 20:07
PROVIDERS: ADMIT Internal Medicine; ATTEND Internal Medicine
PROC: 4A033R1 Measurement of Arterial Saturation, Peripheral, Percutaneous Approach (ICD-10-PCS; principal; 2024-07-28)
PROC: 4A033R1 Measurement of Arterial Saturation, Peripheral, Percutaneous Approach (ICD-10-PCS; 2024-07-28)
DX: E11.65 Type 2 diabetes mellitus with hyperglycemia (principal); E27.40 Unspecified adrenocortical insufficiency; N17.9 Acute kidney failure, unspecified; Z94.4 Liver transplant status; E86.0 Dehydration; E87.5 Hyperkalemia; H53.8 Other visual disturbances; Z79.4 Long term (current) use of insulin; I10 Essential (primary) hypertension; E78.1 Pure hyperglyceridemia; M10.9 Gout, unspecified; F10.21 Alcohol dependence, in remission; Z90.5 Acquired absence of kidney; Z71.81 Spiritual or religious counseling; Z79.899 Other long term (current) drug therapy; Z79.82 Long term (current) use of aspirin; Z79.52 Long term (current) use of systemic steroids
CPT/HCPCS: 36415; 36600; 71045; 80048; 80053; 80061; 81001; 82550; 82805; 82947; 82948; 83036; 83690; 83935; 84295; 84443; 84484; 84520; 85025; 85610; 85730; 93005; 94799; 99284; J1650; J1815; J2270; J2405; J7030; J7507